=== PATIENT | male | born 1990 | race Caucasian/White ===

== ENCOUNTER 2022-01-22 04:57 | Emergency (ER) | payer SELFPAY ==
[~2022-01-22] VITALS: Ht 165.1 cm; Wt 78.9 kg
--- NOTE | 2022-01-22 04:59 | NUR ---
FLORIDALMA PINTO TO [facility]
[2022-01-22 05:03] VITALS: BP 124/81
--- NOTE | 2022-01-22 05:57 | NUR ---
Patient discharged. In custody by P. Advised to follow up with PMD.
--- NOTE | 2022-01-22 05:57 | NUR ---
SEEN BY EDIE NO NURSING INTERVENTIONS PROVIDED FOR PATIENT
[2022-01-22 05:58] VITALS: BP 124/81
== END 2022-01-22 05:56 ==
LOC: MED 04:57
DX: Z02.89 Encounter for other administrative examinations (principal); F10.129 Alcohol abuse with intoxication, unspecified
CPT/HCPCS: 99283